=== PATIENT | female | born 1985 | race Hispanic/Latino ===

== ENCOUNTER 2016-09-03 20:33 | Inpatient (IN) | payer BC, OTHER ==
[2016-09-04 00:51] VITALS: O2SAT 100
[2016-09-17 07:26] VITALS: RESP 20
[2016-09-18 06:50] VITALS: TEMP 98.1
[2016-09-18 09:22] VITALS: BP 121/81; PULSE 111
== END 2016-09-18 11:00 | disposition home or self-care (01) | DRG 885 ==
LOC: C.ER 20:33 → C.5E 09-04 03:15
PROC: GZHZZZZ Group Psychotherapy (ICD-10-PCS; principal; 2016-09-04)
PROC: GZ58ZZZ Individual Psychotherapy, Cognitive-Behavioral (ICD-10-PCS; 2016-09-04)
PROC: GZ56ZZZ Individual Psychotherapy, Supportive (ICD-10-PCS; 2016-09-04)
DX: F33.3 Major depressive disorder, recurrent, severe with psychotic symptoms (principal); R45.851 Suicidal ideations; F25.1 Schizoaffective disorder, depressive type; F10.129 Alcohol abuse with intoxication, unspecified; Y90.8 Blood alcohol level of 240 mg/100 ml or more

== ENCOUNTER 2016-09-19 08:10 | Emergency (ER) | payer BC, OTHER ==
[2016-09-19 08:26] VITALS: BMI 20.8
[2016-09-19 08:34] VITALS: BP 143/93; PULSE 100; RESP 20; TEMP 98.1; O2SAT 100
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
== END 2016-09-19 09:15 | disposition home or self-care (01) ==
LOC: C.ER 08:10
DX: J34.89 Other specified disorders of nose and nasal sinuses (principal); V89.2XXA Person injured in unspecified motor-vehicle accident, traffic, initial encounter